=== PATIENT | female | born 1985 | race Caucasian/White ===

== ENCOUNTER → 2017-02-15 | Outpatient (CLI) | payer BC | END | disposition home or self-care (01) | LOC: GMAJ 14:41 | PROVIDERS: ATTEND Family Medicine | DX: R53.82 Chronic fatigue, unspecified (principal) ==

== ENCOUNTER → 2017-03-02 | Outpatient (CLI) | payer BC | END | disposition home or self-care (01) | LOC: SL 14:41 | PROVIDERS: ATTEND Family Medicine | DX: G47.33 Obstructive sleep apnea (adult) (pediatric) (principal) ==

== ENCOUNTER → 2017-04-04 | Outpatient (CLI) | payer BC, SELFPAY ==
--- NOTE | 2017-04-04 16:43 | MRI ---
EXAM: Brain w/wo Contrast CLINICAL INDICATION: 32-year-old female with dizziness, headache, blurred vision and blackouts. Epilepsy. COMPARISON: 03/12/2009. TECHNIQUE: Multiplanar, multi-sequence MR imaging of the brain pre-and post intravenous administration of gadolinium. FINDINGS: No abnormal increased signal intensity is present on diffusion-weighted imaging to suggest restricted diffusion/acute infarction. T2/flair weighted imaging reveals few foci of patchy increased signal intensity present in a subcortical and periventricular deep white matter distribution, a nonspecific finding however may be seen with small vessel ischemic change. Focus increased signal intensity is present at the level of the LEFT parietal lobe with small volume encephalomalacia/gliosis and linear enhancement compatible with developmental venous anomaly, a normal anatomic variant. There is no evidence of intracranial hemorrhage, mass or edema. Midline structures are within normal limits. No additional abnormal post gadolinium enhancement. The ventricles and basal cisterns are normal in size and configuration. Major intracranial flow voids are identified. The paranasal sinuses and mastoid air cells are patent. IMPRESSION: 1. No abnormal increased signal intensity is present on diffusion-weighted imaging to suggest restricted diffusion/acute infarction. 2. T2/flair weighted imaging reveals few foci of patchy increased signal intensity present in a subcortical and periventricular deep white matter distribution, a nonspecific finding however may be seen with small vessel ischemic change. 3. Focus increased signal intensity is present at the level of the LEFT parietal lobe with small volume encephalomalacia/gliosis and linear enhancement compatible with developmental venous anomaly, a normal anatomic variant. Electronically signed by: Ileana Anna MD 04/04/2017 4:42 PM CDT Workstation: [id number]
== END | disposition home or self-care (01) ==
LOC: MRI 07:04
PROVIDERS: ATTEND Psychiatry & Neurology Neurology
DX: F31.9 Bipolar disorder, unspecified (principal)

== ENCOUNTER → 2017-05-25 | Outpatient (CLI) | payer BC ==
--- NOTE | 2017-05-26 14:16 | US ---
EXAM DESCRIPTION: Thyroid CLINICAL HISTORY: NONTOXIC GOITER COMPARISON: None. TECHNIQUE: Transcutaneous scannin-dimensional and Doppler modes. FINDINGS: Right lobe dimensions 3.9 x 1.4 x 1.4 cm. Heterogeneous echoes. Hypoechoic region not well defined in the posterior mid lobe measuring 4.8 x 4.3 mm. Not vascular. Mobile vascularity in the remainder of the lobe. No microcalcifications. Contour right lobe smooth. Juxta-thyroid masses/fluid: none. Left lobe dimensions 3.2 x 1.2 x 1.2 cm. Heterogeneous echoes. No cystic, no solid, and no complex lesions. Normal vascularity. No microcalcifications. Contour left lobe smooth. Juxta-thyroid masses/fluid: none. Isthmus thickness 1.9 mm. Heterogeneous echoes. No cystic, no solid, and no complex lesions. Normal vascularity. Contour smooth. IMPRESSION: 1. Hypoechoic nodule, less than 5 mm diameter, in the posterior aspect of the mid right lobe of the thyroid gland. This nodule does not meet the imaging criteria for Fine needle aspiration sampling according to best practice guidelines, adopted from ACR white paper and [employer] 3-tiered guidelines on incidental thyroid nodules. Please see below.* These recommendations do not apply to patients with increased risk for thyroid cancer or patients with symptomatic thyroid disease. 2. No discrete solid masses, cystic masses, or edema in the surrounding soft tissues. *Further evaluation by thyroid US recommended for: -Solitary incidental thyroid nodule (ITN) with high risk imaging features (locally invasive nodule or suspicious lymph nodes) -Solitary ITN of any size in pediatric patients <= 18 years of age -Solitary ITN >= 1 cm in axial plane in patients between 18 and 35 years of age -Solitary ITN >= 1.5 cm in axial plane in patients >= 35 years of age -Heterogeneous enlarged thyroid gland -ITN avid on FDG-PET or other nuclear medicine (MIBI and octreotide) scans. FNA biopsy is also recommended for PET avid nodules. 2.No f/u imaging is recommended for ITN's not meeting the above criteria. 3.For multiple thyroid nodules, the above recommendations for solitary ITN are to be applied to the largest nodule. 4.No US or f/u recommended for ITN's without high risk features in patients with limited life expectancy or significant co-morbidities, unless clinically warranted. 5.These recommendations do not apply to patients w/ increased risk for thyroid cancer or patients with symptomatic thyroid disease. Recommendations for f/u of Incidental Thyroid Nodules (ITN) found on CT, MR, NM and Extrathyroidal US are based upon the ACR white paper and [employer] 3-tiered system for managing ITN's: [facility] 2015 Feb;12(2): 143-50 Electronically signed by: Diogo Saenz MD 05/26/2017 2:15 PM CDT
== END | disposition home or self-care (01) ==
LOC: LAB.O 10:03
PROVIDERS: ATTEND Family Medicine
DX: E04.9 Nontoxic goiter, unspecified (principal)

== ENCOUNTER → 2017-09-01 | Outpatient (CLI) | payer BC | END | disposition home or self-care (01) | LOC: GMA 14:37 | PROVIDERS: ATTEND Nurse Practitioner Family | DX: N39.0 Urinary tract infection, site not specified (principal) ==

== ENCOUNTER → 2018-05-02 | Outpatient (CLI) | payer BC, OTHER ==
--- NOTE | 2018-05-02 10:51 | CT ---
Study: CT abdomen and pelvis. Indication: K57.92 lower abdominal pain and constipation. Technique: Noncontrast, venous, and delayed phase CT imaging of the abdomen and pelvis obtained after intravenous administration of contrast. This exam was performed according to our departmental dose-optimization program, which includes automated exposure control, adjustment of the mA and/or kV according to patient size and/or use of iterative reconstruction technique. Comparison: None. Findings: Lower chest, liver, pancreas, spleen, adrenal glands, kidneys, bladder, uterus, and bilateral adnexa unremarkable. Cholecystectomy clips. Mild fatty infiltration throughout the terminal ileum, nonspecific. No acute inflammatory change. Of the ascending and descending colon. Stomach and appendix unremarkable. No free fluid. No free air. No pathologically enlarged lymphadenopathy. No acute osseous abnormality. Impression: Mild fatty infiltration throughout the terminal ileal wall, nonspecific but can be seen in the setting of chronic inflammation. No acute inflammatory change or obstruction identified. Electronically signed by: Schuyler Man MD 05/02/2018 10:50 AM CDT
== END ==
LOC: CT 08:01
PROVIDERS: ATTEND Nurse Practitioner Family
DX: K57.92 Diverticulitis of intestine, part unspecified, without perforation or abscess without bleeding (principal); K76.0 Fatty (change of) liver, not elsewhere classified